=== PATIENT | female | born 1950 | race Caucasian/White ===

== ENCOUNTER 2025-01-27 08:56 | Outpatient (AMB) | payer BC, SELFPAY ==
--- NOTE | 2025-01-27 09:03 | ORTHONT_ITS ---
Vital signs 01/27/25 09:25 Height 1.6 m Height Method Stated Weight 78.103 kg Weight Measurement Method Standing Scale BMI 30.4 BP 130/79 Blood Pressure Source Automatic Cuff Blood Pressure Location Left Upper Arm Position Sitting Respiration 19 Pulse 68 Pulse Source Monitor Temp 97.8 F Temp Source Temporal Artery Scan Pulse Oximetry (%) 94 L Oxygen Delivery Method Room Air Med/Allergies Allergies & Medications Allergies aspirin Allergy (Verified 01/27/25 09:25) upset stomach Medication Reconciliation amlodipine 5 mg tablet 5 mg PO QHS 02/27/18 [History Confirmed 01/27/25] losartan 100 mg tablet 100 mg PO QDAY 02/27/18 [History Confirmed 01/27/25] meloxicam 7.5 mg tablet 7.5 mg PO QDAY #45 tabs 01/27/25 [Rx] valsartan 160 mg tablet 160 mg PO QDAY 01/27/25 [History Confirmed 01/27/25] Assessment and Plan Advanced Care Planning Discussion Advance care planning discussed with:: patient Office Procedures GNS Level of Care Nursing/Assessment Patient Status: Initial/New Patient Nursing Assessment/Reassesment: Medication Reconciliation, Update PMH in EMR and Vital Signs Coordination of Care: Complex Care and Chronic Disease 1-5, Education Complex Pt/Fam, Consent,records obtained, informed consent, 1 Ins Authorization, Lab and Imaging orders, Results/Orders obtained and Staff clarify orders New Patient Charge New Patient Point Assignment: [id number] New Patient Point Charge: TECHNOLOGY STRATEGIST Level 3 ([id number]) Surgical Proc/IM SQ injection Minor Surgical Procedure: Yes (KNEE INJECTION) Medication Given Medication Given Medication Given: Yes Documented Dose Given: 1 Route: Infiitration Medication Given Medication Given Medication Given: Yes Documented Dose Given: 4 Route: Infiitration Office Meds methylprednisolone acetate 80 mg/mL suspension for injection Performing Provider: Minor Granado MD Performing Location: [facility] Administered by: Minor Granado MD on 01/27/25 10:08 Dose Route Admin Location Dispensed Lot Number Expiration Date Pack age [facility] Paediatric Physiotherapist 80 mg intra-articular 1 mL [id number] 10/09/26 [address]-4 [id number] [employer] ropivacaine (PF) 2 mg/mL (0.2 %) injection solution Performing Provider: Minor Granado MD Performing Location: [facility] Administered by: Minor Granado MD on 01/27/25 10:08 Dose Route Admin Location Dispensed Lot Number Expiration Date Pack age [facility] Paediatric Physiotherapist 20 mL Infiltration 20 mL [id number] 07/09/26 0292-5812-70 [id number] SIXTO GREGORY MA Intake Visit Data Collection New Patient or Established: New Patient (never been to [facility]) Reason for Visit:: OA RIGHT KNEE Seen by Clinical Staff ONLY (RN/MA): No Computational Sciences Professor Required: Yes PCP or OBGYN visit in last 3 months: Yes Hx Now: No Do You Feel Safe at Home: Yes Authorities Contacted: N/A Questionairres Past Medical History Past Medical History Have you ever been diagnosed with any of the following: Cardiology Problems Congestive Heart Failure: No Respiratory Problems Chronic Obstructive Pulmonary Disease (COPD): No Genital/Urinary Problems Renal Disease: No Endocrine Problems Diabetes Mellitus Type 1: No Diabetes Mellitus Type 2: No Subjective Visit Visit for: knee (RIGHT) Immunization / Flu Flu Vaccine in the Last 12 Months: Yes Flu Vaccine Exclusion Criteria: Already Received History of Present Illness Chief complaint: OA RIGH TKNEE PAIN Date of injury / onset of symptoms: 15+ YEARS Pain Pain level (0-10): 0 Pain location: anterior Pain quality: sharp Pain timing: night Associated signs & symptoms: stiffness Ambulatory data Ambulatory device: none Treatments Number of previous injections: 0 Improvement with previous injections: No Number of Physical Therapy sessions: 0 Improvement with PT: No Improvement with NSAIDS: no Review of Systems Review of Systems: All systems negative unless otherwise noted in HPI.
[2025-01-27 09:25] VITALS: BP 130/79; PULSE 68; RESP 19; TEMP 36.6; O2SAT 94; BMI 30.4
--- NOTE | 2025-01-27 09:41 | XR_ITS ---
EXAMINATION: Bilateral knees 2 views Right lateral knee left lateral knee 2 views Bilateral [place] single view Date and time: August 27, 2024, 0954 hours INDICATIONS: Right knee pain several years left knee replacement 2 years ago. FINDINGS: Severe narrowing [id number] lateral joint space right knee No fracture Total left knee arthroplasty. Satisfactory alignment Moderate to advanced osteoarthritis right patellofemoral joint IMPRESSION: Severe narrowing [id number] lateral joint space right knee Advanced osteoarthritis right patellofemoral joint
== END 2025-01-27 09:53 | disposition home or self-care (01) ==
PROVIDERS: PCP Internal Medicine; Referring Provider Internal Medicine; Supervising Provider Orthopaedic Surgery Adult Reconstructive Orthopaedic Surgery; Visit Provider Orthopaedic Surgery Adult Reconstructive Orthopaedic Surgery
DX: M17.11 Unilateral primary osteoarthritis, right knee (principal)
CPT/HCPCS: 20610; 73564; 99203; J1010; J2795; G0463